=== PATIENT | female | born 1935 | race Caucasian/White ===

== ENCOUNTER 2016-12-24 16:59 | Observation (INO) | payer OTHER ==
[~2016-12-24] VITALS: Ht 160 cm; Wt 57.8 kg
[~2016-12-24 16:59] MED LIST: ASPIRIN EC81 M1 PO; ATORVASTATIN CA80 M1 PO; BRILINTA90 M1 PO; CIPRO 500MG TA500 MG PO; FLAG500 PO; METOPROLOL TART25 M1 PO; PEPCID20 M1 PO; PERCOCET 325 MG1 TA2 PO; SYNTHROID0.025 MG PO
--- NOTE | 2016-12-24 17:12 | NUR ---
PT TO ED WITH C/O A COUPLE OF DAYS FEELING WEAK, NO ENERGY, ALSO C/O CHEST HEAVINESS. HX STENTS FEBRUARY, GOING FOR PACEMAKER IN [place]. "FEELS LIKE IT TAKES EFFORT TO TAKE A DEEP BREATH". O2 SATS 92-95% ON ROOM AIR, SPEAKING IN FULL SENTENCES IN TRIAGE.
--- NOTE | 2016-12-24 17:30 | NUR ---
BLOOD DRAWN AND SENT TO LAB. SST,LAV,BLUE,ZAYAS,PINK TOPS
[2016-12-24 17:35] LABS: ABSOLUTE BASOPHIL COUNT 0.1 /CUMM (0.0-0.2); ABSOLUTE EOSINOPHIL COUNT 0.2 /CUMM (0.0-0.7); ABSOLUTE GRANULOCYTE CT 3.9 /CUMM (1.4-6.5); ABSOLUTE LYMPH COUNT 1.4 /CUMM (1.2-3.4); ABSOLUTE MONOCYTE COUNT 0.6 /CUMM (0.10-0.60); BASOPHIL % 0.9 % (0.0-2.0); EOSINOPHIL % 2.9 % (0-5); GRANULOCYTE % 63.7 % (42.2-75.2); HEMATOCRIT 41.5 % (37-47); MEAN CORPUSCULAR HGB 32.3 PG (27.0-31.0); MEAN CORPUSCULAR HGB CONC 33.7 G/DL (33.0-37.0); MEAN CORPUSCULAR VOLUME 95.9 FL (81.0-99.0); MEAN PLATELET VOLUME 7.6 FL (7.4-10.4); PLATELET COUNT 265 /CUMM (130-400); RBC DISTRIBUTION WIDTH 13.4 % (11.5-14.5); RED BLOOD CELL CT 4.33 /CUMM (4.20-5.40); WHITE BLOOD CELL COUNT 6.1 /CUMM (4.8-10.8)
--- NOTE | 2016-12-24 17:50 | NUR ---
PT RECIEVED TO ROOM 7. ASSISTED INTO GOWN. PLACED ON FULL TIME AND IS IN SINUS RHYTHM WITH BUNDLE BRANCH BLOCK. IV PLACED IN LEFT FOREARM. PT ALERT AND ORIENTED. SKIN WARM AND DRY . STATES CHEST DISCOMFORT IN CENTER OF CHEST A 2 OUT OF 10 AND ALMOST GONE. IN NO ACUTE DISTRESS. EXPLAINED PLAN TO CHECK TROPONIN
--- NOTE | 2016-12-24 18:33 | ED CARDIAC/CP/PALPITATIONS ---
History of Present Illness General Chief Complaint: Chest Pain Stated Complaint: PER DAUGHTER,"SHE IS HAVING CHEST PAIN" Source: patient, family Exam Limitations: no limitations Allergies Coded Allergies: Penicillins (Intermediate, RASH/HIVES 07/08/16) Sulfa (Sulfonamide Antibiotics) (Intermediate, HIVES 07/08/16) adhesive (Intermediate, RASH 12/24/16) Reconcile Medications Aspirin (Ecotrin*) 81 MG TABLET.DR 1 TAB PO DAILY HEART HEALTH (Reported) Atorvastatin Calcium 80 MG TABLET 1 TAB PO DAILY CHOLESTEROL (Reported) Famotidine (Pepcid) 20 MG TABLET 1 TAB PO BID PRN GI UPSET (Reported) Isosorbide Mononitrate (Isosorbide Mononitrate ER) 30 MG TAB.ER.24H 1 TAB PO DAILY HTN Levothyroxine (Synthroid) 0.025 MG TAB 0.025 MG PO DAILY AC THYROID (Reported ) Ticagrelor (Brilinta) 90 MG TABLET 1 TAB PO BID BLOOD THINNER (Reported) Triage Note: PT TO ED WITH C/O A COUPLE OF DAYS FEELING WEAK, NO ENERGY, ALSO C/O CHEST HEAVINESS. HX STENTS FEBRUARY, GOING FOR PACEMAKER IN [facility]. "FEELS LIKE IT TAKES EFFORT TO TAKE A DEEP BREATH". O2 SATS 92-95% ON ROOM AIR, SPEAKING IN FULL SENTENCES IN TRIAGE. Triage Nurses Notes Reviewed? yes HPI: This patient is a 80-year-old female with a past medical history including myocardial infarction who presents to the emergency department today brought in by her daughter for evaluation of chest pressure. The patient reported that she thinks that the symptoms began today. She reported that she was not doing anything in particular or exerting herself when the pressure began. She denied overt chest pain, but reported central chest pressure. She reported that the pressure is nonradiating and constant. No provoking or palliative factors. The patient reported that she is due for a pacemaker in December 2016. She reported that her body worker is Dr. Shaw. The patient reported that she has been feeling more weak and tired than usual over the last couple of days. She reported some intermittent dizziness. She reported intermittent, shocklike pains from the left side of her jaw into her shoulder. She reported that it feels like, "I am breathing harder." She denied any fevers, chills, visual changes, arm pain, numbness or tingling in her extremities, abdominal pain, nausea, or vomiting. (GOYO SANDERSON PA-C) Vital Signs & Intake/Output Vital Signs & Intake/Output ED Intake and Output 12/26 0000 12/25 1200 Intake Total 950 200 Output Total 700 Balance 250 200 Intake, IV 150 100 Intake, Oral 800 100 Number 1 0 Bowel Movements Output, Urine 700 Patient 128 lb Weight Past History Travel History Traveled to [place] past 21 day No Medical History Any Pertinent Medical History? 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 No (GOYO SANDERSON PA-C) Review of Systems Review of Systems Constitutional: Reports: see HPI. EENTM: Reports: no symptoms. Respiratory: Reports: see HPI. Cardiovascular: Reports: see HPI. GI: Reports: no symptoms. Genitourinary: Reports: no symptoms. Musculoskeletal: Reports: no symptoms. Skin: Reports: no symptoms. Neurological/Psychological: Reports: no symptoms. All Other Systems: Reviewed and Negative (GOYO SANDERSON PA-C) Physical Exam Physical Exam Cardiovascular: regular rate/rhythm, normal peripheral pulses, no murmurs, rubs, or gallops. no jvd. no carotid bruits Comments: Well-developed well-nourished person in no acute distress HEENT: Normal EENT exam, moist mucous membranes, head normocephalic/atraumatic PERRLA bilaterally Neck: Supple, no lymphadenopathy Back: Normal inspection Respiratory: No respiratory distress. Lungs clear to auscultation bilaterally with no wheezes, rales, or rhonchi. No diminished breath sounds Abdomen: Soft, nontender nondistended, no appreciable organomegaly Extremity: No edema, no calf tenderness to palpation, normal and equal pulses. Neuro: Alert oriented x3, cranial nerves II through XII grossly intact. Skin: No appreciable rash on exposed skin, skin is warm and dry. Psych: Mood and affect is normal Core Measures ACS in differential dx? Yes Severe Sepsis Present: No Septic Shock Present: No (MARIA E DE,GOYO) Progress Differential Diagnosis: AMI, aortic dissection, atrial fibrillation, CHF/pulm edema, costochondritis, hyperkalemia, hyperthyroid, hyperventilation, musculoskeletal pain, myocarditis, pancreatitis, pericarditis, pneumonia, pneumothorax, PSVT, pulmonary embolism, PUD/GERD, PVCs/PACs, unstable angina Diagnostic Imaging: Viewed by Me: Radiology Read. Discussed w/RAD: Radiology Read. CXR Impression: PATIENT: DONNA SALINAS PRESENT AGE: 80 PATIENT ACCOUNT NO: [id number] : 36 LOCATION: [facility] ORDERING PHYSICIAN: GOYO SANDERSON PA-C SERVICE DATE: 12/24/16 EXAM TYPE: RAD - XRY-CHEST XRAY, PA AND LATERAL EXAMINATION: XR CHEST CLINICAL INFORMATION: 80- year-old woman with shortness of breath and chest pain. COMPARISON: None recent TECHNIQUE: 2 views of the chest were obtained. FINDINGS: The lungs are well expanded and clear, without evidence of focal airspace consolidation or overt pulmonary edema. There is mild to moderate cardiomegaly. There are no pleural effusions. Mild degenerative changes are noted in the thoracic spine. IMPRESSION : No radiographic evidence of an acute cardiopulmonary process. DICTATED BY: SANYA MUHAMMAD MD DATE/TIME DICTATED:12/24/161855 LEGAL SUPPORT ANALYST:LIZBETH DATE/TIME TRANSCRIBED:12/24/161855 CONFIDENTIAL, DO NOT COPY WITHOUT APPROPRIATE AUTHORIZATION. <Electronically signed in Other Vendor System> SIGNED BY: SANYA MUHAMMAD MD 12/24/16 190 Initial ED EKG: normal axis, normal intervals, LBBB, nonspecific ST T wave chg, 58 bpm Comments: 12/24/2016 7:26:11 PM: I spoke to the physician, Dr. Cervantes, covering for this patient's regular body worker, Dr. Shaw. Discussed with her this patient's work-up, new LBBB compared to our last documented EKG, and history. She reported that unfortunately she is not near a computer so she cannot access this patient' s chart to tell me if this LBBB is her new baseline since her recent AMI or if this is brand new. She reported that she does not know anything about this patient and was unable to provide any information or recommendations. 12/24/2016 8:04:12 PM: I spoke to our on-call body worker, Abel Burden MD , and discussed this patient's workup with him. He recommended that this patient, in as possibly an observation as we are unable to assess at this time if this is a new left bundle-branch block, or if this is this patient's baseline. This patient will officially be signed out to Dr. Boothe for either telemetry admission for telemetry observation. The patient reported relief of her chest discomfort with nitroglycerin. (GOYO SANDERSON PA-C) Plan of Care: Orders Procedure Date/time Status Discharge Patient 12/25 UNK Active Laboratory Tests 12/25/16 1600: APTT Cancelled Departure Departure Disposition: STILL A PATIENT Condition: Stable Clinical Impression Primary Impression: Left bundle branch block Secondary Impressions: Chest pressure Referrals: TRACEE LIVE,SPRING Damon (PCP/Family) Departure Forms: Customer Survey General Discharge Information Prescriptions: Current Visit Scripts Isosorbide Mononitrate (Isosorbide Mononitrate ER) 1 TAB PO DAILY 30 Days Observation Note Physician Advisor Notified: KEVIN LIVE,ISELA [place] Patient In: Non-ED OBS Care Area Rationale for Observation: My rational for observation is as follows [THIS patient is a 80-year-old female with a past medical history including myocardial infarction with stent placement in February 2016, Macey's thyroiditis who presented to the emergency department today for evaluation of chest discomfort. EKG shows a new left bundle branch block compared to prior EKG in 2014. This patient had chest pressure relieved with nitroglycerin here in the emergency department. This patient will need an observation for cardiology consultation in the morning, serial troponin levels, serial EKGs, telemetry monitoring, pulse oximetry monitoring, and possible PT consultation. Based on this patient's significant cardiac history, she is a poor candidate for outpatient treatment. Premature discharge could prove medically harmful.]. (GOYO SANDERSON PA-C) PA/LINING FELLER Co-Sign Statement Statement: ED Attending supervision documentation- [X] I saw and evaluated the patient. I have also reviewed all the pertinent lab results and diagnostic results. I agree with the findings and the plan of care as documented in the PA's/LINING FELLER's documentation. [] I have reviewed the ED Record and agree with the PA's/LINING FELLER's documentation. [] Additions or exceptions (if any) to the PAs/LINING FELLER's note and plan are summarized below: [] (MORAIMA LIVE,PHUONG Tomlin) Critical Care Note Critical Care Note Critical Care Time: non-applicable (MARIA E DE,GOYO) 12/24/16 1832: D-Dimer Cancelled 12/24/16 1726: Anion Gap 11, Estimated GFR > 60, BUN/Creatinine Ratio 26.7 H, Glucose 94, Calcium 9.3, Magnesium 2.1, Total Bilirubin 0.7, AST 33, ALT 47, Alkaline Phosphatase 106, Troponin I < 0.01, Total Protein 7.3, Albumin 4.5, Globulin 2.8 , Albumin/Globulin Ratio 1.6, TSH 2.090, Free T4 1.11, D-Dimer 253 H, CBC w Diff NO MAN DIFF REQ, RBC 4.33, MCV 95.9, MCH 32.3 H, RDW 13.4, MPV 7.6, Gran % 63.7, Lymphocytes % 22.3, Monocytes % 10.2 H, Eosinophils % 2.9, Basophils % 0.9, Absolute Granulocytes 3.9, Absolute Lymphocytes 1.4, Absolute Monocytes 0.6 , Absolute Eosinophils 0.2, Absolute Basophils 0.1, PUBS MCHC 33.7 Departure Departure Disposition: STILL A PATIENT Condition: Stable Clinical Impression Primary Impression: Left bundle branch block Secondary Impressions: Chest pressure Referrals: TRACEE LIVE,SPRING Damon (PCP/Family) Departure Forms: Customer Survey General Discharge Information Observation Note Physician Advisor Notified: KEVIN LIVE,ISELA [place] Patient In: Non-ED OBS Care Area Rationale for Observation: My rational for observation is as follows [THIS patient is a 80-year-old female with a past medical history including myocardial infarction with stent placement in February 2016, Macey's thyroiditis who presented to the emergency department today for evaluation of chest discomfort. EKG shows a new left bundle branch block compared to prior EKG in 2014. This patient had chest pressure relieved with nitroglycerin here in the emergency department. This patient will need an observation for cardiology consultation in the morning, serial troponin levels, serial EKGs, telemetry monitoring, pulse oximetry monitoring, and possible PT consultation. Based on this patient's significant cardiac history, she is a poor candidate for outpatient treatment. Premature discharge could prove medically harmful.]. (MARIA E DE,GOYO) PA/LINING FELLER Co-Sign Statement Statement: ED Attending supervision documentation- [X] I saw and evaluated the patient. I have also reviewed all the pertinent lab results and diagnostic results. I agree with the findings and the plan of care as documented in the PA's/LINING FELLER's documentation. [] I have reviewed the ED Record and agree with the PA's/LINING FELLER's documentation. [] Additions or exceptions (if any) to the PAs/LINING FELLER's note and plan are summarized below: [] (MORAIMA LIVE,PHUONG Tomlin) Critical Care Note Critical Care Note Critical Care Time: non-applicable (MARIA E DE,GOYO)
--- NOTE | 2016-12-24 18:39 | NUR ---
PT SENT TO RADIOLOGY
--- NOTE | 2016-12-24 19:00 | RADIOLOGY REPORT ---
EXAMINATION: XR CHEST CLINICAL INFORMATION: 80-year-old woman with shortness of breath and chest pain. COMPARISON: None recent TECHNIQUE: 2 views of the chest were obtained. FINDINGS: The lungs are well expanded and clear, without evidence of focal airspace consolidation or overt pulmonary edema. There is mild to moderate cardiomegaly. There are no pleural effusions. Mild degenerative changes are noted in the thoracic spine. IMPRESSION: No radiographic evidence of an acute cardiopulmonary process.
--- NOTE | 2016-12-24 19:27 | NUR ---
PT GIVEN SL NTG FOR CHEST PAIN. PT THINKS PAIN IS RELIEVED AFTER NTG BUT IT MAY BE THERE SLIGHTLY. PT REMAINS ALERT, ORIENTED. SKIN WARM AND DRY, NO SOB. IN NO OVERT DISTRESS. SEEN BY DR VALERA AND DISCUSSED BUNDLE BRANCH BLOCK SEEN ON EKG.
--- NOTE | 2016-12-24 20:02 | NUR ---
PT GIVEN CRACKERS, PEANUT BUTTER AND APPLESAUCE WITH PERMISSION OF GOYO ALMARAZ
--- NOTE | 2016-12-24 20:41 | NUR ---
PT INFORMED SHE WILL BE STAYING IN HOSPITAL. EXPLAINED PLAN OF CARE TO ADMIT. PT PROVIDED LIST OF HOME MEDS. PT DUE FOR KATHE JOSHI AND CATIE STEWART
--- NOTE | 2016-12-24 20:52 | NUR ---
IVF BOLUS STARTED. PT SEEN BY DR URIOSTEGUI. PT STATES SHE HAS HAD CHEST PRESSURE ALL DAY. REMAINS ALERT AND ORIENTED. SKIN WARM AND DRY. IN NO OVERT DISTRESS
--- NOTE | 2016-12-24 21:22 | NUR ---
VITALS TAKE, PT CONTINUES TO HAVE CHEST PRESSURE. STATES IT IS MILD IN NATURE, NOT BOTHERSOME BUT THERE.
--- NOTE | 2016-12-24 21:57 | History & Physical ---
KAILYN LIVE,[facility] [place]24/16 2156: General Information and HPI MD Statement: I have seen and personally examined DONNA SALINAS and documented this H&P. The patient is a 80 year old F who presented with a patient stated chief complaint of chest pressure. Source of Information: patient Exam Limitations: no limitations History of Present Illness: Ms. 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 Patient reports that she has been feeling unwell with dizziness, lethargy and generalized weakness for the past 2 days. The day of current presentation, she developed dull substernal chest pressure, 3/10 in intensity and with no radiation to arm or jaw. Chest discomfort was present at rest. She notes shortness of breath but denies any associated diaphoresis, palpitations, nausea or vomiting. Patient was concerned as her symptoms were similar to her previous MN episode and thus called EMS who brought her to the ED. Of note, previous cardiac cath was performed at [facility]. Patient experienced multiple syncopal episodes in the last few months and was seen by her sheep rancher in [place] who placed a Holter monitor, which showed pauses and scheduled her for pacemaker placement on 01/17/2017. Patient received nitroglycerin in the ED, with slight improvement of her chest pain to 2-3/10. Of note, patient reports intermittent episodes of shock-like pain radiating from her left jaw to her shoulder. She denies recent injuries or falls. Allergies/Medications Allergies: Coded Allergies: Penicillins (Intermediate, RASH/HIVES 07/08/16) Sulfa (Sulfonamide Antibiotics) (Intermediate, HIVES 07/08/16) adhesive (Intermediate, RASH 12/24/16) Home Med list Aspirin (Ecotrin*) 81 MG TABLET.DR 1 TAB PO DAILY HEART HEALTH (Reported) Atorvastatin Calcium 80 MG TABLET 1 TAB PO DAILY CHOLESTEROL (Reported) Famotidine (Pepcid) 20 MG TABLET 1 TAB PO BID PRN GI UPSET (Reported) Isosorbide Mononitrate (Isosorbide Mononitrate ER) 30 MG TAB.ER.24H 1 TAB PO DAILY HTN Levothyroxine (Synthroid) 0.025 MG TAB 0.025 MG PO DAILY AC THYROID (Reported ) Ticagrelor (Brilinta) 90 MG TABLET 1 TAB PO BID BLOOD THINNER (Reported) Past History Travel History Traveled to [place] past 21 day No Medical History Neurological: NONE EENT: macular degeneration Cardiovascular: CAD, hypertension, hyperlipidemia, myocardial infarction, STENTS IN FEBRUARY Respiratory: NONE Gastrointestinal: diverticulitis, GERD Hepatic: NONE Renal: NONE Musculoskeletal: NONE Endocrine: Macey's thyroiditis Blood Disorders: NONE Cancer(s): NONE 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 Denies: chills, diaphoresis, fever. EENTM: Reports: visual changes (2/2 macular degeneration). Cardiovascular: Reports: chest pain, syncope. Denies: palpitations. Respiratory: Reports: short of breath. GI: Denies: constipation, diarrhea, nausea, vomiting. Genitourinary: Reports: no symptoms. Musculoskeletal: Reports: no symptoms. Skin: Reports: no symptoms. Neurological/Psychological: Reports: no symptoms. Hematologic/Endocrine: Reports: no symptoms. Immunologic/Allergic: Reports: no symptoms. All Other Systems: Reviewed and Negative Exam & Diagnostic Data Last 24 Hrs of Vital Signs/I&O Vital Signs Date Time Temp Pulse Resp B/P Pulse O2 O2 Flow FiO2 Ox Delivery Rate 12/25 0813 97.6 59 18 120/70 96 Room Air 12/24 2346 62 106/78 12/24 2340 98.0 55 18 126/84 96 Room Air 12/24 2247 96.4 60 18 127/74 96 Room Air 12/243 96.9 56 16 125/61 97 Room Air 12/24 1920 62 101/62 12/24 1915 96.5 60 16 142/65 98 Room Air 12/24 1840 Room Air 12/24 1710 97.0 64 20 139/85 96 Room Air Room Air Intake & Output 12/25 1600 12/25 0800 12/25 0000 Intake Total 200 Output Total Balance 200 Intake, IV 100 Intake, Oral 100 Number 0 Bowel Movements Patient 57.833 kg 58.967 kg Weight Physical Exam General Appearance Alert, Oriented X3, No Acute Distress Skin No Rashes HEENT Mucous Membr. moist/pink Neck Supple, No JVD, No LAD Cardiovascular Regular Rate, Normal S1, Normal S2 Lungs Clear to Auscultation Abdomen Soft, No Tenderness, Nondistended, Positive Bowel Sounds Neurological Normal Speech, Strength at 5/5 X4 Ext, Cranial Nerves 3-12 NL, Reflexes 2+, No Gross Focal Deficits Noted Extremities No Edema Vascular Normal Pulses, Pulses Symmetrical Last 24 Hrs of Labs/Jacob: Laboratory Tests 12/24/16 1726: Anion Gap 11, Estimated GFR > 60, BUN/Creatinine Ratio 26.7 H, Glucose 94, Calcium 9.3, Magnesium 2.1, Total Bilirubin 0.7, AST 33, ALT 47, Alkaline Phosphatase 106, Troponin I < 0.01, Total Protein 7.3, Albumin 4.5, Globulin 2.8 , Albumin/Globulin Ratio 1.6, TSH 2.090, Free T4 1.11, PT 12.0, INR 1.14, APTT 33, D-Dimer 253 H, CBC w Diff NO MAN DIFF REQ, RBC 4.33, MCV 95.9, MCH 32.3 H, RDW 13.4, MPV 7.6, Gran % 63.7, Lymphocytes % 22.3, Monocytes % 10.2 H, Eosinophils % 2.9, Basophils % 0.9, Absolute Granulocytes 3.9, Absolute Lymphocytes 1.4, Absolute Monocytes 0.6, Absolute Eosinophils 0.2, Absolute Basophils 0.1, PUBS MCHC 33.7 Diagnostic Data EKG Results NSR HR 58 LBBB (not present on previous EKG from 09/2015) CXR Results No radiographic evidence of an acute cardiopulmonary process. Assessment/Plan Assessment: 80 y/o F with PMHx of CAD c/b MN in February 2016 s/p PCI x3 stents, HTN and HLD who presents with chest pressure. #Chest pressure: Mild nonradiating substernal chest discomfort with only minimal relief from nitroglycerin. Troponins negative x2. Concerning for ACS (unstable angina vs NSTEMI) in the setting of significant CAD with recent MN s/p PCI x3 stents. PRISCA score of 5 corresponding to high risk of mortality from UA/NSTEMI. LBBB on EKG not present on prior EKG from September 2015, which could indicate NSTEMI if new in onset. Unable to obtain records from [facility] to compare EKG. Rectal examination was guaiac negative and patient was started on IV heparin. * Admit to telemetry for continuous cardiac monitoring. * Cardiology consult placed. Appreciate their recs. * Continue IV heparin. * Alert cardiology in case of uptrending troponins or worsening pain. * Continue home daily low dose aspirin and atorvastatin 80 mg PO QHS. * Continue prior to admission metoprolol 6.25 mg PO BID and ticagrelor 90 mg PO BID. #HTN: * Continue prior to admission metoprolol 6.25 mg PO BID. #HLD: * Continue prior to admission atorvastatin 80 mg PO QHS. 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 * Continue prior to admission levothyroxine 25 mcg PO AC. #GERD: * Continue prior to admission famotidine 20 mg PO BID PRN GI upset. Diet: Heart Healthy DVT PPx: Heparin IV and ALPs Fluids: None Lytes: Replete to K > 4 and Mg > 2 Pain: Tylenol 650 mg PO Q6H PRN for mild pain (scale 1-3) Roxicodone 5 mg PO Q6H PRN for moderate pain (scale 4-6) CODE: FULL As Ranked By This Provider Problem List: 1. Chest pressure 2. CAD (coronary artery disease) 3. HLD (hyperlipidemia) 4. HTN (hypertension) 5. 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 GERD (gastroesophageal reflux disease) 7. History of MN (myocardial infarction) 8. History of coronary artery stent placement Core Measures/Miscellaneous Acute Coronary Syndrome ACS Diagnosis: No Cerebrovascular Accident CVA/TIA Diagnosis: No Congestive Heart Failure CHF Diagnosis: No Venous Thromboembolism VTE Risk Factors: Acute medical illness, Age > 40 VTE Prophylaxis Ordered Inpt: Mech & Pharm No Mech VTE prophylaxis d/t: No contraindications No VTE Pharm Prophylaxis d/t: No contraindications VTE Diagnosis: No VTE Type: NONE VTE Confirmed by (Test): NONE Severe Sepsis Severe Sepsis Present: No Septic Shock Septic Shock Present: No Miscellaneous Documentation Attending Case Discussed With: NISHANT JASMINE MD Primary Care Physician: SPRING EASLEY MD Patient sees these Specialists Warehouse And Receiving Supervisor in [place] Level of Patient Care: Telemetry PHANI HAMM 12/24/16 2234: Resident Review Statement Resident Statement: examined this patient, discussed with video production intern, agreed with video production intern Other Findings: Patient is a 80-year-old women with past medical history significant for MN in February 2016 status post 3 stents placement, history of hypertension and hyperlipidemia, hypothyroidism presented to the ED with chief complaint of nonspecific chest discomfort and generalized weakness and malaise. Patient reported that she was not doing well for the last couple of days felt weak and lethargic, dizzy all the time. Today she started having substernal chest discomfort, dull in character 3/10 in severity without any radiation, started at rest. Reported some shortness of breath any nausea vomiting or sweating. The symptoms were concerning and she was brought to the ER for further assessment. Patient reported that she passed out twice in the last couple of months, was seen by her sheep rancher and had a Holter monitor placed, recording showed that her heart stopped for few seconds and as per sheep rancher's recommendations she is going for pacemaker placement in 01/17/2017. Patient reported intermittent, shocklike pains from the left side of her jaw into her shoulder.Denied any recent infections fever. No diarrhea or constipation. No recent injuries or falls. Vitals on admission temperature 96.0, pulse 60, respiratory rate 16, blood pressure 142/65 on room air. On examination feneral Appearance: Alert, No Acute Distress Skin: Grossly normal HEENT: PEERLA Neck: Supple, No JVD Cardiovascular: loud pansystolic murmur in the mitral region. Lungs: bilateral basal crackles Abdomen: Normal Bowel Sounds, Soft, No Tenderness Neurological: Normal Speech, Strength at 5/5 X4 Ext, Cranial Nerves 3-12 NL, Reflexes 2+ Extremities: No extremity edema Pertinent labs on admission: Normal CBC , normal BEP. First troponin negative, EKG done in the ED showed normal sinus rhythm with new left bundle branch block as compared to the previous EKG. Chest x-ray:No radiographic evidence of an acute cardiopulmonary process. Assessment and plan: 1. Acute onset chest discomfort at rest(calculated PRISCA score 5) possible unstable angina versus NSTEMI. * We will admit the patient telemetry floor. * We will do serial troponin and EKG. * Patient already received high-dose aspirin in the ER, continue baby aspirin, high-dose Lipitor and beta patricia. * Cardiology consult has been obtained for further recommendations. * As PRISCA score is elevated patient, we will start anti-coagulation with heparin. * If chest pain worsens/patient become more symptomatic/elevated troponins inform cardiology * Watch for any hemodynamic instability * Continue sublingual nitroglycerin for as needed chest discomfort. 2. History of coronary artery disease status post stent placement * Continue aspirin, high-dose Lipitor . * Continue brelenta 3. History of hypertension hyperlipidemia: * Continue Lipitor and metoprolol 4. History of hypothyroidism 5. DVT prophylaxis with heparin/Lovenox 6. Patient is full code . HENRY MANUEL 12/25/16 0501: Attending MD Review Statement Attending Statement Attending MD Statement: examined this patient, discuss w/resident/PA/SCREEN ROLLER, agreed w/resident/PA/SCREEN ROLLER, reviewed EMR data (avail), reviewed images, amended to note Attending Assessment/Plan: CC: Chest pressure PMH: CAD, MN in February 2016 S/P 3 stents, HTN, HLD, hypothyroidism, macular degeneration in right eye (vision decreased, absent finger counting) Patient was dizzy and tired and lethargic last 2 days but started to notice chest pressure, substernal, radiating laterally, 3/10 in intensity, not radiating to arm or jaw, not associated with palpitations or dizziness or shortness of breath. Patient describes his symptoms as similar to her previous MN episode where EMS was called and she was taken directly to [facility] for cardiac procedure. 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 "My heart stops in between". Patient currently on Holter monitor because of 4 to syncopal episodes. Patient received nitroglycerin in ER, without much relief. Chest pain persists to be in the range of 2-3/10. Vitals: Afebrile, HR 150s to 60s, RR 18-20, blood pressure in acceptable range, saturating well on room air. On exam: A O 3, no acute distress, anxious, mucosa moist, no lymphadenopathy, no JVD, neck supple, no dependent edema, peripheral pulses and perfusion normal, CVS: S1-S2, RRR. RS:: Soft, NT, ND, bowel sounds present. No focal neurological deficit. No obvious skin rashes or inflammation. Labs: CBC, BMP, LFT, troponin T unremarkable, d-dimer 253. EKG: Left bundle branch block (no previous comparison) CXR: No radiographic evidence of acute cardiopulmonary process. A and P #1 chest pain/pressure: Mild 2-3/10, nonradiating, no relief with nitroglycerin. More concerning in the setting of PCI done 8 months back . ACS, unstable angina , serial troponin, serial EKGs. Cardiology has been informed from ER. Patient has left bundle branch block on EKG, previous comparison not available, tried to get records from [facility] overnight to compare EKG, not successful. Continue heparin drip after guaiac. Consult cardiology. Continue aspirin, atorvastatin, Ticagrelor. Continue beta patricia at home doses, call sheep rancher if elevated troponin or pain worsens. #2 history of HTN, HLD, hypothyroidism: Continue home medications, levothyroxine , continue famotidine
--- NOTE | 2016-12-24 22:43 | NUR ---
PT BED ASSIGNMENT 177-1
--- NOTE | 2016-12-24 22:50 | NUR ---
REPORT CALLED TO SHAILESH ON TELE UNIT
--- NOTE | 2016-12-24 22:50 | NUR ---
SHAILESH NOTIFIED OF NEED FOR 2330 EKG AND TROPONIN AND PT REQUEST FOR SENSITIVE SKIN ELECTRODE PADS
[2016-12-24 23:40] VITALS: BP 126/84
[2016-12-25 01:01] LABS: PTT 33 SEC (25-37)
[2016-12-25 07:49] LABS: ABSOLUTE BASOPHIL COUNT 0 /CUMM (0.0-0.2); ABSOLUTE MONOCYTE COUNT 0.6 /CUMM (0.10-0.60); MEAN CORPUSCULAR HGB 32.6 PG (27.0-31.0); RED BLOOD CELL CT 3.74 /CUMM (4.20-5.40); WHITE BLOOD CELL COUNT 5.1 /CUMM (4.8-10.8)
[2016-12-25 08:04] LABS: ABSOLUTE EOSINOPHIL COUNT 0.2 /CUMM (0.0-0.7); ABSOLUTE LYMPH COUNT 1.1 /CUMM (1.2-3.4); BASOPHIL % 0.7 % (0.0-2.0); EOSINOPHIL % 4.9 % (0-5); GRANULOCYTE % 59.8 % (42.2-75.2); MEAN CORPUSCULAR HGB CONC 34.1 G/DL (33.0-37.0); MEAN CORPUSCULAR VOLUME 95.6 FL (81.0-99.0); PLATELET COUNT 204 /CUMM (130-400); RBC DISTRIBUTION WIDTH 13.3 % (11.5-14.5)
[2016-12-25 08:08] LABS: HEMATOCRIT 35.8 % (37-47)
[2016-12-25 08:13] VITALS: BP 120/70
--- NOTE | 2016-12-25 08:22 | PN- Housestaff ---
See Addendum Subjective Follow-up For: Chest pain Complaints: no complaints Tele-Events Since Last Visit: Normal sinus rhythm, HR 51-58 BPM Subjective: Interval history: No acute events overnight. This morning the patient states that her chest pain has resolved and denies any palpitations, shortness of breath, headache, dizziness, nausea, abdominal pain. Review of Systems Constitutional: Reports: see HPI. EENTM: Reports: no symptoms. Cardiovascular: Reports: see HPI. Respiratory: Reports: no symptoms. Gastrointestinal: Reports: no symptoms. Musculoskeletal: Reports: no symptoms. Neurological/Psychological: Reports: no symptoms. Objective Last 24 Hrs of Vital Signs/I&O Vital Signs Date Time Temp Pulse Resp B/P Pulse O2 O2 Flow FiO2 Ox Delivery Rate 12/25 1048 59 120/70 12/25 0813 97.6 59 18 120/70 96 Room Air 12/24 2346 62 106/78 12/24 2340 98.0 55 18 126/84 96 Room Air 12/24 2247 96.4 60 18 127/74 96 Room Air 12/24 2123 96.9 56 16 125/61 97 Room Air 12/24 1920 62 101/62 12/24 1915 96.5 60 16 142/65 98 Room Air 12/24 1840 Room Air 12/24 1710 97.0 64 20 139/85 96 Room Air Room Air Intake & Output 12/25 1600 12/25 0800 12/25 0000 Intake Total 200 Output Total Balance 200 Intake, IV 100 Intake, Oral 100 Number 0 Bowel Movements Patient 128 lb 130 lb Weight Physical Exam General Appearance: Alert, Cooperative, No Acute Distress Skin: No Rashes, No Breakdown HEENT: EOMI, Mucous Membr. moist/pink Cardiovascular: Regular Rate, Normal S1, Normal S2, systolic murmur Lungs: Normal Air Movement Abdomen: Normal Bowel Sounds, Soft, No Tenderness Neurological: Normal Speech Extremities: Normal Pulses Vascular: Pulses Symmetrical Current Medications: Current Medications Sig/Adali Start time Last Medication Dose Route Stop Time Status Admin Acetaminophen 650 MG Q6P PRN 12/24 2200 AC PO Aspirin 325 MG ONCE ONE 12/24 1914 DC 12/24 PO 12/24 Aspirin 0 .STK-MED ONE 12/24 1910 DC PO Aspirin Buffered 81 MG DAILY 12/25 1000 AC 12/25 PO 1048 Atorvastatin Calcium 80 MG AT BEDTIME 12/24 2300 AC 12/24 PO 2346 Enoxaparin Sodium 40 MG DAILY 12/25 1000 CAN SC Famotidine 20 MG BID PRN 12/24 2315 AC PO Heparin Sodium 25,000 UNIT Q24H 12/25 0100 DC 12/25 (Porcine) IV 0108 Sodium Chloride 500 ML Heparin Sodium 25,000 UNIT Q24H 12/25 0030 DC (Porcine) IV Sodium Chloride 500 ML Isosorbide 30 MG DAILY 12/26 1000 AC Mononitrate PO Levothyroxine Sodium 0.025 MG DAILY AC 12/25 0700 AC 12/25 PO 0638 Melatonin 3 MG AT BEDTIME 12/24 2300 AC 12/24 PO 2346 Metoprolol Tartrate 6.25 MG BID 12/24 2313 DC 12/25 PO 1048 Nitroglycerin 0.4 MG ONCE ONE 12/24 1914 DC 12/24 SL 12/24 Nitroglycerin 0 .STK-MED ONE 12/24 1910 [facility] Oxycodone HCl 5 MG Q6P PRN 12/24 2200 AC PO Polyethylene Glycol 17 GM DAILY 12/25 1000 AC 12/25 PO 1048 Sodium Chloride 1,000 ML BOLUS ONE 12/24 204 DC 12/24 IV 12/24 Ticagrelor 90 MG BID 12/24 231 12/25 PO 1048 Last 24 Hrs of Lab/Jacob Results Last 24 Hrs of Labs/Mics: Laboratory Tests 12/25/16 0615: Anion Gap 8, Estimated GFR > 60, BUN/Creatinine Ratio 24.0, Troponin I < 0.01, Triglycerides 56, Cholesterol 93, LDL Cholesterol, Calc 44 L, HDL Cholesterol 38 L, Cholesterol/HDL Ratio 2, APTT > 120 *H, CBC w Diff NO MAN DIFF REQ, RBC 3.74 L, MCV 95.6, MCH 32.6 H, RDW 13.3, MPV 8.0, Gran % 59.8, Lymphocytes % 22.4, Monocytes % 12.2 H, Eosinophils % 4.9, Basophils % 0.7, Absolute Granulocytes 3.0, Absolute Lymphocytes 1.1 L, Absolute Monocytes 0.6, Absolute Eosinophils 0.2, Absolute Basophils 0, PUBS MCHC 34.1 12/25/16 0025: APTT Cancelled 01/27/17 2320: Troponin I < 0.01 12/24/16 1832: D-Dimer Cancelled 12/24/16 1726: Anion Gap 11, Estimated GFR > 60, BUN/Creatinine Ratio 26.7 H, Glucose 94, Calcium 9.3, Magnesium 2.1, Total Bilirubin 0.7, AST 33, ALT 47, Alkaline Phosphatase 106, Troponin I < 0.01, Total Protein 7.3, Albumin 4.5, Globulin 2.8 , Albumin/Globulin Ratio 1.6, TSH 2.090, Free T4 1.11, PT 12.0, INR 1.14, APTT 33, D-Dimer 253 H, CBC w Diff NO MAN DIFF REQ, RBC 4.33, MCV 95.9, MCH 32.3 H, RDW 13.4, MPV 7.6, Gran % 63.7, Lymphocytes % 22.3, Monocytes % 10.2 H, Eosinophils % 2.9, Basophils % 0.9, Absolute Granulocytes 3.9, Absolute Lymphocytes 1.4, Absolute Monocytes 0.6, Absolute Eosinophils 0.2, Absolute Basophils 0.1, PUBS MCHC 33.7 Assessment/Plan Assessment: 80-year-old lady with a PMH of CAD S/P [place] February 2016 s/p PCI x3 stents, HTN, HLD , Macey's thyroiditis, diverticulitis, GERD and macular degeneration who presented with complaints of chest pressure with lateral radiation, generalized weakness and malaise. Recent catheterization at , planned pacemaker placement 01/17/2017. Pt does have a Hx of pauses. VS on admission: HR 150s, BP 139/85, EKG on admission: new LBBB compared to previous EKG Problem list: 1. Unstable angina 2. New LBBB 3. History of CAD S/P recent cath Plan: * Serial EKGs negative and resolution chest pain at this time. We'll discontinue heparin per recommendations from cardiology. With her history of cardiac pauses. Lopressor and start patient on Imdur 30 mg daily * Patient is on Ecotrin 81 mg. We'll start patient on atorvastatin 80 mg daily * We'll continue Brillinta 90mg BID * Planned discharge later today with follow-up instructions to see her digital forensics investigator Tuesday. Patient will likely benefit from cardiac stress test. If worsening symptoms, instructed the patient to come back to the emergency room * Heart healthy diet * DVT prophylaxis: Heparin * CODE STATUS: Full code Problem List: 1. Left bundle branch block 2. Chest pressure Pain Ratin Pain Location: Substernal Pain Goal: Pain 4 or less Pain Plan: NA Tomorrow's Labs & Rationales: None required. Stable for discharge DVT/Prophylaxis: pharmacological Consulting Request: Consulting Specialty: Cardiology Discharge Plan Discharge Disposition: home Stable for Discharge? Yes Anticipated Discharge (Day): today If Discharged Today/In 24 Hrs: W-10/discharge paper done, DC summary done, CMR done
[2016-12-25 08:41] LABS: PTT > 120 SEC (25-37)
[2016-12-25 10:48] VITALS: BP 120/70
--- NOTE | 2016-12-25 14:00 | Cons- Cardiology ---
General Information and HPI Consulting Request Date of Consult: 12/25/16 Requested By: NISHANT JASMINE MD Reason for Consult: CAD, left bundle-branch block Source of Information: patient History of Present Illness: This is a pleasant 80 y/o Female with a PMH of CAD/MD requiring PCI ([facility]) February 2016, LBBB, syncope, LINQ implant, hypothryoidism, and GERD who presents to [facility] with chest discomfort. She describes it as low intensity (2/10) associated with some mild weakness but not clear dyspnea or palpitations. No exacerbating or allevaiting factors, was not exertional. No change with Nitro. No radiation or diaphoresis. Symptoms resolved on their own and she is currently asymptomatic. She had previous episodes of recurrent syncope with LBBB and reported bradycardia on LINQ implant, per report is planned for elective PPM in December at [facility]. Denies recurrent dizziness or syncope recently. No fever, cough , focal weakness, [place]ER[place], or slurred speech. Ambulated today without any symptoms. Patient is an excellent historian and provided the above hx to me directly. Allergies/Medications Allergies: Coded Allergies: Penicillins (Intermediate, RASH/HIVES 07/08/16) Sulfa (Sulfonamide Antibiotics) (Intermediate, HIVES 07/08/16) adhesive (Intermediate, RASH 12/24/16) Home Med List: Aspirin (Ecotrin*) 81 MG TABLET.DR 1 TAB PO DAILY HEART HEALTH (Reported) Atorvastatin Calcium 80 MG TABLET 1 TAB PO DAILY CHOLESTEROL (Reported) Famotidine (Pepcid) 20 MG TABLET 1 TAB PO BID PRN GI UPSET (Reported) Isosorbide Mononitrate (Isosorbide Mononitrate ER) 30 MG TAB.ER.24H 1 TAB PO DAILY HTN Levothyroxine (Synthroid) 0.025 MG TAB 0.025 MG PO DAILY AC THYROID (Reported ) Ticagrelor (Brilinta) 90 MG TABLET 1 TAB PO BID BLOOD THINNER (Reported) Current Medications: Current Medications Sig/Adali Start time Last Medication Dose Route Stop Time Status Admin Acetaminophen 650 MG Q6P PRN 12/24 2200 AC PO Aspirin 325 MG ONCE ONE 12/24 1914 DC 12/24 PO 12/24 Aspirin 0 .STK-MED ONE 12/24 1910 DC PO Aspirin Buffered 81 MG DAILY 12/25 1000 AC 12/25 PO 1048 Atorvastatin Calcium 80 MG AT BEDTIME 12/24 2300 AC 12/24 PO 2346 Enoxaparin Sodium 40 MG DAILY 12/25 1000 CAN SC Famotidine 20 MG BID PRN 12/24 2315 AC PO Heparin Sodium 25,000 UNIT Q24H 12/25 0100 DC 12/25 (Porcine) IV 0108 Sodium Chloride 500 ML Heparin Sodium 25,000 UNIT Q24H 12/25 0030 DC (Porcine) IV Sodium Chloride 500 ML Isosorbide 30 MG DAILY 12/26 1000 AC Mononitrate PO Levothyroxine Sodium 0.025 MG DAILY AC 12/25 0700 AC 12/25 PO 0638 Melatonin 3 MG AT BEDTIME 12/24 2300 AC 12/24 PO 2346 Metoprolol Tartrate 6.25 MG BID 12/24 2313 DC 12/25 PO 1048 Nitroglycerin 0.4 MG ONCE ONE 12/24 1915 DC 12/24 SL 12/24 191 191 Nitroglycerin 0 .STK-MED ONE 12/24 1910 [facility] Oxycodone HCl 5 MG Q6P PRN 12/24 2200 AC PO Polyethylene Glycol 17 GM DAILY 12/25 1000 AC 12/25 PO 1048 Sodium Chloride 1,000 ML BOLUS ONE 12/24 2045 DC 12/24 IV 12/24 2144 205 Ticagrelor 90 MG BID 12/24 2313 AC 12/25 PO 1048 Review of Systems Review of Systems: Review of systems as per HPI. The remainder of a 10 point review of systems was reviewed and was otherwise negative. 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: CYSTOCELE Surgical History Surgical History: PCI with x3 stents Psychosocial History Primary Language: Syriac Smoking Status: Never Smoked ETOH Use: denies use Illicit Drug Use: denies illicit drug use Exam & Diagnostic Data Vital Signs and I&O Vital Signs Date Time Temp Pulse Resp B/P Pulse O2 O2 Flow FiO2 Ox Delivery Rate 12/25 1048 59 120/70 12/25 0813 97.6 59 18 120/70 96 Room Air 12/24 2346 62 106/78 12/24 2340 98.0 55 18 126/84 96 Room Air 12/247 96.4 60 18 127/74 96 Room Air 12/243 96.9 56 16 125/61 97 Room Air 12/24 1920 62 101/62 12/24 1915 96.5 60 16 142/65 98 Room Air 12/24 1840 Room Air 12/24 1710 97.0 64 20 139/85 96 Room Air Room Air Intake & Output 12/25 1600 12/25 0800 12/25 0000 12/24 1600 12/24 0812/24 0000 Intake Total 200 Output Total Balance 200 Intake, IV 100 Intake, Oral 100 Number 0 Bowel Movements Patient 128 lb 130 lb Weight Physical Exam: General: comfortable, no distress Eyes: No obvious scleral icterus. HEENT: No jugular venous distention or abnormal jugular venous pulsations. Cardiovascular: Normal intensity S1/S2. Regular. Left side SQ LINQ noted. Respiratory: no rales or ronchi Abdomen: Soft, nontender with no guarding or rebound tenderness. Musculoskeletal: No clubbing or cyanosis noted, no edema Skin: Warm Neurologic: No gross focal deficits noted. Labs/Jacob Results: Laboratory Tests 12/25 12/25 12/24 0615 0025 2320 Chemistry Sodium (137 - 145 mmol/L) 143 Potassium (3.5 - 5.1 mmol/L) 4.3 Chloride (98 - 107 mmol/L) 107 Carbon Dioxide (22 - 30 mmol/L) 28 Anion Gap (5 - 16) 8 BUN (7 - 17 mg/dL) 12 Creatinine (0.5 - 1.0 mg/dL) 0.5 Estimated GFR (>60 ml/min) > 60 BUN/Creatinine Ratio (7 - 25 %) 24.0 Troponin I (< 0.11 ng/ml) < 0.01 < 0.01 Triglycerides (<150 mg/dL) 56 Cholesterol (<200 MG/DL) 93 LDL Cholesterol, Calc (65 - 129 mg/dL) 44 L HDL Cholesterol (40 - 60 mg/dL) 38 L Cholesterol/HDL Ratio (0.00 - 4.23 %) 2 Coagulation APTT (25 - 37 SEC) > 120 *H Cancelled Hematology CBC w Diff NO MAN DIFF REQ WBC (4.8 - 10.8 /CUMM) 5.1 RBC (4.20 - 5.40 /CUMM) 3.74 L Hgb (12.0 - 16.0 G/DL) 12.2 Hct (37 - 47 %) 35.8 L MCV (81.0 - 99.0 FL) 95.6 MCH (27.0 - 31.0 PG) 32.6 H RDW (11.5 - 14.5 %) 13.3 Plt Count (130 - 400 /CUMM) 204 MPV (7.4 - 10.4 FL) 8.0 Gran % (42.2 - 75.2 %) 59.8 Lymphocytes % (20.5 - 51.1 %) 22.4 Monocytes % (1.7 - 9.3 %) 12.2 H Eosinophils % (0 - 5 %) 4.9 Basophils % (0.0 - 2.0 %) 0.7 Absolute Granulocytes (1.4 - 6.5 /CUMM) 3.0 Absolute Lymphocytes (1.2 - 3.4 /CUMM) 1.1 L Absolute Monocytes (0.10 - 0.60 /CUMM) 0.6 Absolute Eosinophils (0.0 - 0.7 /CUMM) 0.2 Absolute Basophils (0.0 - 0.2 /CUMM) 0 PUBS MCHC (33.0 - 37.0 G/DL) 34.1 12/24 12/24 1832 1726 Chemistry Sodium (137 - 145 mmol/L) 140 Potassium (3.5 - 5.1 mmol/L) 4.6 Chloride (98 - 107 mmol/L) 102 Carbon Dioxide (22 - 30 mmol/L) 27 Anion Gap (5 - 16) 11 BUN (7 - 17 mg/dL) 16 Creatinine (0.5 - 1.0 mg/dL) 0.6 Estimated GFR (>60 ml/min) > 60 BUN/Creatinine Ratio (7 - 25 %) 26.7 H Glucose (65 - 99 mg/dL) 94 Calcium (8.4 - 10.2 mg/dL) 9.3 Magnesium (1.6 - 2.3 mg/dL) 2.1 Total Bilirubin (0.2 - 1.3 mg/dL) 0.7 AST (14 - 36 U/L) 33 ALT (9 - 52 U/L) 47 Alkaline Phosphatase (<127 U/L) 106 Troponin I (< 0.11 ng/ml) < 0.01 Total Protein (6.3 - 8.2 g/dL) 7.3 Albumin (3.5 - 5.0 g/dL) 4.5 Globulin (1.9 - 4.2 gm/dL) 2.8 Albumin/Globulin Ratio (1.1 - 2.2 %) 1.6 TSH (0.270 - 4.200 uIU/mL) 2.090 Free T4 (0.78 - 2.44 ng/dL) 1.11 Coagulation PT (9.4 - 12.5 SEC) 12.0 INR (0.90 - 1.19) 1.14 APTT (25 - 37 SEC) 33 D-Dimer (70 - 232 ng/ml) Cancelled 253 H Hematology CBC w Diff NO MAN DIFF REQ WBC (4.8 - 10.8 /CUMM) 6.1 RBC (4.20 - 5.40 /CUMM) 4.33 Hgb (12.0 - 16.0 G/DL) 14.0 Hct (37 - 47 %) 41.5 MCV (81.0 - 99.0 FL) 95.9 MCH (27.0 - 31.0 PG) 32.3 H RDW (11.5 - 14.5 %) 13.4 Plt Count (130 - 400 /CUMM) 265 MPV (7.4 - 10.4 FL) 7.6 Gran % (42.2 - 75.2 %) 63.7 Lymphocytes % (20.5 - 51.1 %) 22.3 Monocytes % (1.7 - 9.3 %) 10.2 H Eosinophils % (0 - 5 %) 2.9 Basophils % (0.0 - 2.0 %) 0.9 Absolute Granulocytes (1.4 - 6.5 /CUMM) 3.9 Absolute Lymphocytes (1.2 - 3.4 /CUMM) 1.4 Absolute Monocytes (0.10 - 0.60 /CUMM) 0.6 Absolute Eosinophils (0.0 - 0.7 /CUMM) 0.2 Absolute Basophils (0.0 - 0.2 /CUMM) 0.1 PUBS MCHC (33.0 - 37.0 G/DL) 33.7 Diagnostic Data EKG Results Tracing was personally reviewed and shows sinus bradycardia at 58 bpm with left bundle-branch block CXR Results IMPRESSION: No radiographic evidence of an acute cardiopulmonary process. Other Results Telemetry tracings were personally reviewed and shows sinus rhythm and sinus bradycardia without prolonged pauses or advanced heart block Assessment/Plan Assessment/Plan 1. Transient chest discomfort with normal troponins, now asymptomatic 2. Hx CAD/MD requiring PCI ([facility]) February 2016 3. Hx of LBBB with bradycardia/syncope/LINQ implant, planned for elective PPM at [facility] December 2016 4. Hx hypothyroidism/GERD Patient is HD stable. Patient's low level chest discomfort has resolved. She is currently asymptomatic and anxious to be discharged as she has her 81th birthday coming up on Tuesday. Troponins are negative x 3 with no events on telemetry review. I discussed with her primary hydraulics engineer today (Dr. Arellano) and will plan for Nuclear stress test in his office next week. Continue CAD meds but stop the B-patricia given the previous (last episode October) symptomatic bradycardia hx with plan for elective PPM. Change the B- patricia to low dose Imdur daily for antianginal effect. Patient is instructed and agrees to proceed directly to the ER via 911 with any new or recurrent symptoms. She will call her primary hydraulics engineer's office on Tuesday to arrange the Nuclear stress test for next week. Siddharth Burden MD [facility] Consult Acknowledgment - Thank you for your consult request.
[2016-12-25] MEDS ORDERED: ISOSORBIDE MONO30 M1 PO (14:12)
--- NOTE | 2016-12-25 14:14 | Patient Discharge Instructions ---
Discharge Instructions General Discharge Information You were seen/treated for: Unstable angina (chest pain at rest) Watch for these problems: Recurrence of chest pain, shortness breath, dizziness Special Instructions: Please take all medications as directed. Please follow-up with your stripper machine operator on Tuesday. We stopped the beta patricia due to pauses on EKG. please take the new medication Imdur as directed Diet Recommended Diet: Heart Healthy Activity Activity Self Limited: Yes Acute Coronary Syndrome Inclusion Criteria At DC or during hospital stay patient has or had the following: ACS DIAGNOSIS No Discharge Core Measures Meds if any: Prescribed or Continued at Discharge Meds if any: NOT Prescribed or Continued at Discharge Congestive Heart Failure Inclusion Criteria At DC or during hospital stay patient has or had the following: CHF DIAGNOSIS No Discharge Core Measures Meds if any: Prescribed or Continued at Discharge Meds if any: NOT Prescribed or Continued at Discharge Cerebrovascular accident Inclusion Criteria At DC or during hospital stay patient has or had the following: CVA/TIA Diagnosis No Discharge Core Measures Meds if any: Prescribed or Continued at Discharge Meds if any: NOT Prescribed or Continued at Discharge Venous thromboembolism Inclusion Criteria VTE Diagnosis No VTE Type NONE VTE Confirmed by (Test) NONE Discharge Core Measures - Per Current guidelines, there needs to be overlap - treatment for the first 5 days of Warfarin therapy. - If discharged on Warfarin prior to 5 days of - overlap therapy, the patient will need to be - assessed for post discharge needs including - *Post discharge parental anticoagulation - *Warfarin and/or parental anticoagulation education - *Follow up date to check INR post discharge At least 5 days overlap therapy as Inpatient No Meds if any: Prescribed or Continued at Discharge Note: Overlap Therapy is Warfarin and Anticoagulant Meds if any: NOT Prescribed or Continued at Discharge
--- NOTE | 2016-12-25 22:15 | Discharge Summary ---
Visit Information Visit Dates Admission Date: 12/24/16 Discharge Date: 12/25/16 Hospital Course Course Attending Physician: NISHANT JASMINE MD Primary Care Physician: TRACEE LIVE,SPRING Damon Other Care Providers: Cardiology (Abel Burden MD) Consulting Request: Consulting Specialty: Cardiology Allergies: Coded Allergies: Penicillins (Intermediate, RASH/HIVES 07/08/16) Sulfa (Sulfonamide Antibiotics) (Intermediate, HIVES 07/08/16) adhesive (Intermediate, RASH 12/24/16) Disposition Summary Disposition Principal Diagnosis: Unstable angina Additional Diagnosis: Left bundle branch block Bradycardia/pauses Discharge Disposition: home or self care Discharge Instructions General Discharge Information Code Status: Full Code Patient's Diet: Heart healthy Patient's Activity: As tolerated Follow-Up Instructions/Appts: These follow the project specialist on Tuesday for planned outpatient pacemaker. Medications at Discharge Discharge Medications: Stop taking the following medications: Metoprolol Tartrate (Metoprolol Tartrate) 25 MG TABLET ORAL TWICE DAILY Qty = 30 Continue taking these medications: Levothyroxine (Synthroid) 0.025 MG TAB 0.025 Milligram ORAL DAILY BEFORE BREAKFAST Qty = 90 Atorvastatin Calcium (Atorvastatin Calcium) 80 MG TABLET 1 Tablet ORAL DAILY Qty = 30 Comments: Last Taken: 12/25/16 Time: 12:00 AM Ticagrelor (Brilinta) 90 MG TABLET 1 Tablet ORAL TWICE DAILY Qty = 60 Comments: Last Taken: 12/25/16 Time: 12:00 AM Aspirin (Ecotrin*) 81 MG TABLET.DR 1 Tablet ORAL DAILY Comments: Last Taken: 12/25/16 Time: 11:00 AM Famotidine (Pepcid) 20 MG TABLET 1 Tablet ORAL TWICE DAILY as needed for GI UPSET Comments: NOT TAKEN IN HOSPITAL Start taking the following new medications: Isosorbide Mononitrate (Isosorbide Mononitrate ER) 30 MG TAB.ER.24H 1 Tablet ORAL DAILY Days = 30 No Refills Comments: NOT TAKEN IN HOSPITAL
== END 2016-12-25 15:30 ==
LOC: ENRESERVDT → ENRESERVTM → ERH 16:59 → ENPENDDIS 21:53 → ERHI 21:53 → 1NO 23:09
PROVIDERS: Emergency Medicine; Student in an Organized Health Care Education/Training Program; ADMIT Internal Medicine
DX: I25.110 Atherosclerotic heart disease of native coronary artery with unstable angina pectoris (principal); I44.7 Left bundle-branch block, unspecified; R00.1 Bradycardia, unspecified; I25.2 Old myocardial infarction; I10 Essential (primary) hypertension; E78.5 Hyperlipidemia, unspecified; E06.3 Autoimmune thyroiditis; K21.9 Gastro-esophageal reflux disease without esophagitis; H35.30 Unspecified macular degeneration
CPT/HCPCS: 2000; 6020; 36415; 82436; 93005; 93010; 96374; G0378; J1644; J1650; J3490